=== PATIENT | female | born 2005 | race Caucasian/White ===

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

== ENCOUNTER 2024-07-24 09:34 | Emergency (ER) | payer OTHER, SELFPAY ==
[2024-07-24 09:35] VITALS: BP 120/95; PULSE 60; RESP 18; TEMP 36.4; O2SAT 100
--- OUTSIDE RECORDS SUMMARY | 2024-07-24 10:06 | XMS_ITS | Clinical Summary ---
Author Organization [facility] Address [address] [place] [address] Care Team Providers Care Home Health Rn Name Role Phone Mary Kay Mcgrath MD Primary Care P rovider Allergies No known active allergies Medications Blisovi Fe 06/08, , 1 mg-20 mcg (21)/75 mg (7) per tablet Take 1 tablet by mouth daily 06/03/2023 Active Active Problems Problem Noted Date Diagnosed Date Abdominal pain 08/12/2023 Celiac disease 08/12/2023 Helicobacter pylori infection 08/12/2023 Chronic abdominal pain 08/11/2023 Social History Tobacco Use Types Packs/Day Years Used Date Smoking Tobacco: Former Cigarettes E-cigarettes Smokeless Tobacco: Never Tobacco Cessation:Counseling Given: Not Answered AUDIT-C Answer Date Recorded Q1: How often do you have a drink containing alcohol? Never 08/19/2023 Q2: How many drinks containi ng alcohol do you have on a typical day when you are drinking? Patient does not drink Q3: How often do you have si x or more drinks on one occasion? Never 08/19/2023 Personal Safety Answer Date Recorded Have you ever been in or are you currently in a harmful physical or emotional relationship or is someone making you feel afraid or unsafe? Denies 08/19/2023 Comments No Sex and Gender Information Value Date Recorded Sex Assigned at Not on file Legal Sex Female 2:43 PM CDT Gender Identity Not on file Sexual Orientation Not on file Obstetrics History Growth Chart Information Age Height Weight Bkkpbp-inb-mjue th Percentile BMI Percentile Head Circum Head Circum Percentile Date 17 years 160 cm (5' 3 ) 56.7 kg (125 lb) 57.66%* 2023 17 years 160 cm (5' 3 ) 56.5 kg (124 lb 8 oz) 56.73%* 2023 * [facility] (Girls, 2-20 Years) Last Filed Vital Signs Vital Sign Reading Time Taken Comments Blood Pressure 109/73 08/19/2023 4:00 PM CDT Pulse 81 08/19/2023 4:00 PM CDT Temperature 37.6 C (99.7 F) 08/19/2023 1:44 PM CDT Respiratory Rate 19 08/19/2023 4:00 PM CDT Oxygen Saturation 100% 08/19/2023 4:00 PM CDT Inhaled Oxygen Concentration - - Weight 56.7 kg (125 lb) 08/19/2023 1:44 PM CDT Height 160 cm (5' 3 ) 08/19/2023 1:44 PM CDT Body Mass Index 22.14 08/19/2023 1:44 PM CDT Body Mass Index Percentile 57.66% 08/19/2023 1:4 4 PM CDT Growth Chart: [facility] (Girls, 2- 20 Years) Plan of Treatment Health Maintenance Due Date Last Done Comments Depression Screening 2004 DTaP/Tdap/Td Vaccine (1 - Tdap) 10/31/2015 Varicella Vaccines (1 of 2 - 13+ 2-dose series) 2017 HPV Vaccines (1 - 3-dose series) 10/31/2019 Meningococcal B Vaccine (1 o f 2 - Standard) 2020 Regular Well Visit/Exam 18-64 2022 Influenza Vaccine (#1) 2024 Hepatitis B Screening Completed 08/09/2023 Hepatitis C Screening Completed 08/09/2023 Meningococcal Vaccine Aged Out No karen meghna eligible based on patient's age to complete this topic Pneumococcal vaccine <65 Aged Out No longer eligible based on patient's age to complete this topic Procedures Procedure Name Priority Date/Time Associated Diagnosis Comments HEPATITIS C ANTIBODY Routine 08/09/2023 9:42 AM CDT Abnormal AST and ALT from Last 3 Months or Most Recently Relevant to Health Maintenance Results * Hepatitis C antibody Blood (08/09/2023 9:42 AM CDT) Hep C Ab Nonreactive Nonreactive Comment:Antibodies to HCV no t detected. Does NOT exclude the possibility of recent exposure to HCV. Current interpretive data was last revised on 22 Blood 08/09/2023 9:42 AM CDT 08/09/2023 11:33 AM CDT us Gideon Horne MD LAB MICROBIOLOGY - GENER AL ORDERABLES Final Result [facility] [place] [address] from Last 3 Months or Most Recently Relevant to Health Maintenance [place] [address] [place] [address] Advance Directives For more information, please contact: [phone] * Full Code (Latest Code Status on File) Date Activated Date Inactivated Comments 08/19/2023 1:32 PM 08/19/2023 8:17 PM Care Teams Home Health Rn Relationship Specialty Start Date End Date Mary Kay Mcgrath MD [address] [facility] [place] [address] PCP - General Internal Medicine 08/09/23
--- OUTSIDE RECORDS SUMMARY | 2024-07-24 10:06 | XMS_ITS | Referral Summary ---
Author Organization [facility] Address [address] [place] [address] Care Team Providers Care Coffee Grower Name Role Phone Mary Kay Mcgrath MD [...] on file Sexual Orientation Not on file Last Filed Vital Signs Vital Sign Reading [...] 08/19/2023 1:4 4 PM CDT Growth Chart: [facility] (Girls, 2- 20 Years) Plan of Treatment Not on file Procedures Procedure Name Priority Date/Time Associated Diagnosis [...] MICROBIOLOGY - GENER AL ORDERABLES Final Result [facility] Department [place] [address] from Last 3 Months or Most Recently Relevant to Health Maintenance Insurance [place] [facility] Advance Directives For more information, please contact: [phone] * Full Code (Latest Code Status on File) Date Activated Date Inactivated Comments 08/19/2023 1:32 PM 08/19/2023 8:17 PM Care Teams Coffee Grower Relationship Specialty Start Date End Date Mary Kay Mcgrath MD [address] [facility] [address] [place] [address] PCP - General Internal Medicine 08/09/23
--- OUTSIDE RECORDS SUMMARY | 2024-07-24 10:06 | XMS_ITS | Encounter Summary ---
Author Organization [facility] Address [address] [place] [address] Phone Care Team Providers Care Canteen Manager Name Role Phone Mary Kay Mcgrath MD Primary Care P rovider Encounter Details Date Type Department Care Team (Late st Contact Info) Description 02/27/2024 Orders Only [facility] Scanning, Provider Social History Tobacco Use Types Packs/Day Years Used Date Smoking Tobacco: Former Cigarettes E-cigarettes Smokeless Tobacco: Never AUDIT-C Answer Date Recorded Q1: How often [...] on file Sexual Orientation Not on file documented as of this encounter Plan of Treatment Not on file documented as of this encounter Procedures Procedure Name Priority Date/Time Associated Diagnosis Comments SCAN - LABS 02/27/2024 documented in this encounter Results * SCAN - LABS (02/27/2024) us Provider Scanning Final Result documented in this encounter Visit Diagnoses Not on filedocumented in this encounter Care Teams Canteen Manager Relationship Specialty Start Date End Date Mary Kay Mcgrath MD [facility] [address] [address] PCP - General Internal Medicine 08/09/23 documented as of this encounter
--- OUTSIDE RECORDS SUMMARY | 2024-07-24 12:27 | XMS_ITS | Encounter Summary ---
Author Organization [facility] Address [address] [place] [address] Phone Care Team Providers Care Payroll Processor Name Role Phone Mary Kay Mcgrath MD [...] on filedocumented in this encounter Care Teams Payroll Processor Relationship Specialty Start Date End Date Mary Kay Mcgrath MD [facility] [facility] [place] [address] PCP - General Internal Medicine 08/09/23 documented as of this encounter
--- OUTSIDE RECORDS SUMMARY | 2024-07-24 12:27 | XMS_ITS | Clinical Summary ---
Author Organization [facility] Address [address] [place] [address] Care Team Providers Care Art Objects Salesperson Name Role Phone Mary Kay Mcgrath MD [...] History Growth Chart Information Age Height Weight Ffrbzq-rmu-cqit th Percentile BMI Percentile Head Circum Head Circum Percentile Date 17 years 160 cm (5' 3 ) 56.7 kg (125 lb) 57.66%* 2023 17 years 160 cm (5' 3 ) 56.5 kg (124 lb 8 oz) 56.73%* 2023 * [facility]NOTE 3[facility] (Girls, 2-20 Years) Last Filed Vital Signs [...] 08/19/2023 1:4 4 PM CDT Growth Chart: [facility]NOTE 3[facility] (Girls, 2- 20 Years) Plan of Treatment [...] - GENER AL ORDERABLES Final Result [facility] One [facility] Department [place] [address] from Last 3 Months or Most Recently Relevant to Health Maintenance [place] [address] [place] [address] Advance Directives For more information, please contact: [phone] * Full Code (Latest Code Status on File) Date Activated Date Inactivated Comments 08/19/2023 1:32 PM 08/19/2023 8:17 PM Care Teams Art Objects Salesperson Relationship Specialty Start Date End Date Mary Kay Mcgrath MD [address] [facility] [place] [address] PCP - General Internal Medicine 08/09/23
--- OUTSIDE RECORDS SUMMARY | 2024-07-24 12:27 | XMS_ITS | Referral Summary ---
Author Organization [facility] Address [address] [place] [address] Care Team Providers Care Embedded Software Developer Name Role Phone Mary Kay Mcgrath MD [...] 08/19/2023 1:4 4 PM CDT Growth Chart: [facility] (Girls, 2- 20 Years) Plan of Treatment [...] MICROBIOLOGY - GENER AL ORDERABLES Final Result [facility] One [facility] Department [place] [address] from Last 3 Months or Most Recently Relevant to Health Maintenance Insurance [place] [facility] Advance Directives For more information, please contact: [phone] * Full Code (Latest Code Status on File) Date Activated Date Inactivated Comments 08/19/2023 1:32 PM 08/19/2023 8:17 PM Care Teams Embedded Software Developer Relationship Specialty Start Date End Date Mary Kay Mcgrath MD [address] [facility] [place] [address] PCP - General Internal Medicine 08/09/23
--- NOTE | 2024-07-24 14:11 | ED_ITS ---
HPI - Neck Pain/Injury General Chief Complaint: Neck Pain/Injury Stated Complaint: neck pain Time Seen by Provider: 07/24/24 11:16 History of Present Illness HPI Narrative: Patient is a 18-year-old female who presents to the ER with complaints of neck pain. She reports her neck pain started approximately 1 week ago. Patient denies having hit her head or fevers. She endorses full range of motion, but endorses worsening pain with movement. Patient denies any headaches or one-sided weakness/numbness/tingling. She denies any medical history related to this ER visit. Related Data Home Medications ?Medication ?Instructions ?Recorded ?Confirmed ?Last Taken ?Type sulfamethoxazole 800 1 tablet PO 04/28/24 04/28/24 Unknown History mg-trimethoprim 160 mg tablet Allergies Allergy/AdvReac Type Severity Reaction Status Date / Time No Known Allergies Allergy Mild Verified 07/24/24 12:10 Review of Systems Review of Systems: All systems reviewed & are unremarkable except as noted in HPI and below PMFSH Family History Family History Grandparent Heart disease Social History Social History Smoking status: Never smoker Alcohol intake: never Substance use: never Lack of Transportation: No Lack of Food: Never True Current Housing: I Have Housing Concerned About Future Housing: No Difficulty Paying Gas/Electric Bills: No Difficulty Paying for Meds: No Currently Unemployed: No Education: High School Diploma/GED Difficulty w/ Childcare or Family Care: No Living arrangements: with family Occupation/Education: student Gender identity (if verbalized by the patient): Female Sexual Orientation (if Verbalized by the Patient): Straight or Heterosexual Exam Narrative: GENERAL: Well appearing, well-nourished, non-toxic, in no acute distress. HEAD: Normocephalic, atraumatic. PERRLA intact NECK: Supple. No adenopathy, no masses. RESPIRATORY: Airway patent, respirations nonlabored. Clear to auscultation bilaterally, no rales, rhonchi, wheezing. CARDIOVASCULAR: Regular rate and rhythm without murmurs, rubs, or gallops. Peripheral pulses 2+ and equal bilaterally. ABDOMINAL: Soft, nontender, nondistended, no hepatosplenomegaly. Normoactive BS. MUSCULOSKELETAL: Moves all extremities. Strength/ROM intact without gross deformities. SKIN: Warm, dry, normal color. No rashes. NEURO: A&O X3. Speech clear. Cranial nerves II-XII grossly intact. Steady gait. No ataxic movements. PSYCHIATRIC: Appropriate mood and affect. Normal interaction. Course Vital Signs Vital signs: Vital Signs Temperature 36.4 C 07/24/24 09:35 Pulse Rate 60 07/24/24 09:35 Respiratory Rate 18 07/24/24 09:35 Blood Pressure 120/95 H 07/24/24 09:35 Pulse Oximetry 100 07/24/24 09:35 Oxygen Delivery Room Air 07/24/24 09:35 Temperature 36.4 C 07/24/24 09:35 Pulse Rate 60 07/24/24 09:35 Respiratory Rate 18 07/24/24 09:35 Blood Pressure 120/95 H 07/24/24 09:35 Pulse Oximetry 100 07/24/24 09:35 Oxygen Delivery Room Air 07/24/24 09:35 MDM - Neck Pain/Injury MDM Narrative Medical decision making narrative: Patient is a 18-year-old female who presents to the ER with complaints of neck pain. She reports her neck pain started approximately 1 week ago. Patient denies having hit her head or fevers. She endorses full range of motion, but endorses worsening pain with movement. Patient denies any headaches, mastoid tenderness, cough/congestion/sore throat or one-sided weakness/numbness/tingling. She denies any medical history related to this ER visit. Labs Ordered: None necessary Imaging Ordered: None necessary Medications Ordered: Toradol 60 mg IM, prednisone 40 mg p.o. Diagnosis: neck strain Patient Education/Shared MDM: Results shared with patient. She endorses improvement following medication administration. Patient strongly advised to maintain hydration status upon discharge and follow-up with her PCP. She will be discharged home with prescription for muscle relaxants and anti- inflammatories. Strict return precautions provided. Patient verbalized understanding is in agreement with plan. Vital signs stable at time of discharge. All questions answered. Differential Diagnosis Differential diagnosis: Likely cervical radiculopathy, torticollis, cervical spondylosis and strain of neck muscle Discharge Plan Discharge Clinical Impression: Neck muscle strain, Acute neck pain Patient Disposition: Home, Self-Care Condition: Stable Instructions: Antibiotic Form, Cervical Strain (ED), Neck Pain (ED) Additional Instructions: Please return to the ER with any worsening symptoms. Follow-up with primary care provider in the next 2-3 days. Take all medications as prescribed. You can take Ibuprofen as needed for additional pain relief. Patient Language: Luxembourger Prescriptions: New methylprednisolone [Medrol (Robert)] 4 mg tablets,dose pack See Rx Instructions .ROUTE .COMPLEX Qty: 21 0RF Rx Instructions: for 6 days cyclobenzaprine 5 mg tablet 5 mg PO TID PRN (Reason: muscle spasm) Qty: 12 0RF No Action sulfamethoxazole-trimethoprim 800-160 mg tablet 1 tablet PO Follow-up/Referrals: UNKNOWN,DOCTOR [Primary Care Provider] - Stand Alone Forms: Work/School Release IP Time of Disposition: 15:25
[2024-07-24] MEDS: KETOROLAC (*BKC) 60 MG/2 ML VIAL IM (15:00)
[2024-07-24] MEDS: predniSONE 20 MG TABLET 40 MG PO (15:00)
[2024-07-24 15:29] VITALS: BP 120/83; PULSE 61; RESP 16; O2SAT 100
== END 2024-07-24 15:30 | disposition home or self-care (01) ==
PROVIDERS: Emergency Provider Registered Nurse
DX: S16.1XXA Strain of muscle, fascia and tendon at neck level, initial encounter (principal); X58.XXXA Exposure to other specified factors, initial encounter
CPT/HCPCS: 96372; 99283; J1885; J7512

== ENCOUNTER 2025-03-04 05:59 | Emergency (ER) | payer OTHER, SELFPAY ==
--- NOTE | ~2025-03-04 | CT_ITS ---
EXAMINATION: CT abdomen pelvis w con DATE: 03/04/2025 08:03 INDICATION: Right upper quadrant and epigastric abdominal pain. TECHNIQUE: Computed tomography (CT) of the abdomen and pelvis was performed with 100 mL Omnipaque-350 intravenous contrast. Automated exposure control and iterative reconstruction technique were employed. The dose-length product was 242.21 mGy-cm. COMPARISON: None FINDINGS: Lung bases are clear. Heart size is normal. No pericardial or pleural effusion. Liver, gallbladder, spleen, pancreas, bilateral adrenal glands and kidneys are normal. Bowels including the appendix are normal. Bladder, uterus and bilateral adnexa are unremarkable. Small amount of likely physiologic free fluid in the cul-de-sac. No pathologically enlarged abdominal or pelvic lymphadenopathy. Moderate disc height loss at T10-T11 and chronic appearing mild anterior wedging at T11. IMPRESSION: 1. No acute intra-abdominal/pelvic process. Reviewed, dictated and finalized at location A.
[2025-03-04 06:00] VITALS: BP 133/72; PULSE 83; RESP 16; TEMP 37.2; O2SAT 100
[2025-03-04 06:40] LABS: Hematocrit 37.2 % (37.0-47.0); Hemoglobin 12.3 g/dL (12.0-15.0); Immature Granulocyte Percent A 0.4 % (0-0.5); Lymphocytes Absolute Auto 0.57 K/mm3 (0.9-3.2); Mean Corpuscular HGB Conc 33.1 g/dl (32-36); Mean Corpuscular Hemoglobin 30.3 pg (26-34); Mean Corpuscular Volume 91.6 fl (80-100); Nucleated Red Blood Cells Absolute Auto 0.000 K/mm3 (0.0-0.012); Nucleated Red Blood Cells Perc 0.0 % (0.0-0.2); Platelet Count Result 247 k/mm3 (150-375); Red Blood Count 4.06 M/mm3 (4.2-5.4); White Blood Count 4.7 K/mm3 (4.5-10.0)
--- NOTE | 2025-03-04 06:44 | ED_ITS ---
HPI - GI Bleed General Chief complaint: GI Bleed Stated complaint: covid +, throwing up blood Time Seen by Provider: 03/04/25 06:16 Source: patient Mode of arrival: ambulatory Limitations: no limitations History of Present Illness HPI Narrative: This is a 19-year-old female, who denies significant past medical history, presents emergency department complaining blood in vomit. The patient states she tested positive for COVID yesterday. This morning she began vomiting. She noted what appeared to be dark, stringy, coffee-ground appearing debris and vomit. She states she has not eaten since yesterday morning. She has complains of sharp epigastric and right upper quadrant abdominal pain rated 5/10. She has no other complaints at this time. Related Data Allergies Allergy/AdvReac Type Severity Reaction Status Date / Time No Known Allergies Allergy Mild Verified 10/19/24 08:27 Review of Systems 2 Review of Systems: Last menstrual period 3 weeks ago All systems reviewed & are unremarkable except as noted in HPI and below PMFSH Past Medical History Medical History Exposure to sexually transmitted disease (STD) Family History Family History Grandparent Heart disease Social History Social History Smoking status: Never smoker Alcohol intake: never Substance use: never Lack of Transportation: No Lack of Food: Never True Current Housing: I Have Housing Concerned About Future Housing: No Difficulty Paying Gas/Electric Bills: No Difficulty Paying for Meds: No Currently Unemployed: No Education: High School Diploma/GED Difficulty w/ Childcare or Family Care: No Living arrangements: with family Occupation/Education: student Gender identity (if verbalized by the patient): Female Sexual Orientation (if Verbalized by the Patient): Straight or Heterosexual Exam 2 Narrative: GENERAL: Well-developed, well-nourished, and in no acute distress. HEAD: Normocephalic, atraumatic. EYES: PERRLA and EOMI. ENT: Nares clear, no rhinorrhea or epistaxis. Mucous membranes moist. Oropharynx without tonsillar hypertrophy exudate or other lesions. Bilateral TMs pearly burns nonbulging NECK: Supple. No adenopathy or masses. No carotid bruits or JVD CHEST: Clear to auscultation. No respiratory distress. No wheezes rales or rhonchi HEART: Regular rate and rhythm. No murmur heard. Normal peripheral pulses. ABDOMEN: Soft, nontender, nondistended, normal active bowel sounds. EXTREMITIES: Normal range of motion. No edema. SKIN: Warm, dry, no rash. NEURO: Alert and oriented x3. No focal deficit. Moving all 4 limbs spontaneously PSYCH: Normal mood and affect. Course Course Emergency Course: 10:15 - CBC demonstrates a normal white blood cell count though an elevated neutrophil low lymphocyte percentage. Chemistries unremarkable, including a normal BUN. I have low suspicion for GI bleed. test negative. CT abdomen pelvis unremarkable. On re-evaluation, the patient states her nausea is somewhat improved though still present. She has not had recurrent episodes of vomiting here or other signs of bleeding. Will discharge with a PPI and recommendation for primary care follow-up. I discussed the findings and recommendations with patient. Discussed return and emergency precautions including signs/symptoms of acute abdomen and intractable vomiting. The patient voiced understanding and agreement with the plan. All questions answered to her satisfaction. Vital Signs Vital signs: Vital Signs Temperature 99.0 F 03/04/25 06:00 Pulse Rate 83 03/04/25 06:00 Respiratory Rate 16 03/04/25 06:00 Blood Pressure 133/72 03/04/25 06:00 Pulse Oximetry 100 03/04/25 06:00 Oxygen Delivery Room Air 03/04/25 06:00 Temperature 99.0 F 03/04/25 06:00 Pulse Rate 88 03/04/25 10:35 Respiratory Rate 14 03/04/25 10:35 Blood Pressure 114/83 03/04/25 10:35 Pulse Oximetry 100 03/04/25 10:35 Oxygen Delivery Room Air 03/04/25 06:00 MDM - GI Bleed MDM Narrative Medical decision making narrative: Plan: Imaging, test, pain control, labs, reassess Differential Diagnosis Differential diagnosis: Likely Lay-Jalloh syndrome and other (Gastritis, peptic ulcer disease, COVID-19, metabolic abnormality, , other) Lab Data 03/04/25 06:32 03/04/25 06:32 Labs: Lab Results 03/04/25 03/04/25 Range/Units 06:32 06:48 WBC 4.7 (4.5-10.0) K/mm3 RBC 4.06 L (4.2-5.4) M/mm3 Hgb 12.3 (12.0-15.0) g/dL Hct 37.2 (37.0-47.0) % MCV 91.6 (80-100) fl MCH 30.3 (26-34) pg MCHC 33.1 (32-36) g/dl RDW 12.9 (11.5-14.5) % Plt Count 247 (150-375) k/mm3 MPV 9.7 (7.4-10.4) fl Immature Gran % (Auto) 0.4 (0-0.5) % Neut % (Auto) 76.2 H (45.5-73.1) % Lymph % (Auto) 12.0 L (18.3-44.2) % Hall % (Auto) 10.8 H (2.6-8.5) % Eos % (Auto) 0.4 (0-4.4) % Baso % (Auto) 0.2 (0.2-1.2) % Lymph # (Auto) 0.57 L (0.9-3.2) K/mm3 Hall # (Auto) 0.5 (0.1-0.6) K/mm3 Eos # (Auto) 0.0 (0-0.3) K/mm3 Baso # (Auto) 0.0 (0.0-0.1) K/mm3 Abs Immat Gran (auto) 0.02 (0.00-0.031) K/mm3 Absolute Neuts (auto) 3.6 (1.3-6.7) K/mm3 Absolute Nucleated RBC 0.000 (0.0-0.012) K/mm3 Nucleated RBC % 0.0 (0.0-0.2) % PT 13.5 (11.1-14.7) Seconds INR 1.0 APTT 28.5 (22.3-36.8) Seconds Sodium 136 L (137-145) mmol/L Potassium 3.9 (3.4-5.0) mmol/L Chloride 104 (98-107) mmol/L Carbon Dioxide 23 (22-30) mmol/L Anion Gap 9 (4-12) mmol/L BUN 7 (7-17) mg/dL Creatinine 0.68 L (0.7-1.0) mg/dL Estim Creat Clear Calc 98 ml/min Estimated GFR > 60 (59 - ) Glucose 95 (65-110) mg/dL Lactic Acid 0.6 L (0.7-2.0) mmol/L Calcium 8.9 (8.4-10.2) mg/dL Total Bilirubin 0.3 (0.2-1.3) mg/dL AST 27 (14-36) U/L ALT 14 (6-35) U/L Alkaline Phosphatase 66 (38-126) U/L Total Protein 7.4 (6.3-8.2) g/dL Albumin 4.1 (3.5-5.1) g/dL POC Urine HCG, Qual Negative (Negative) Blood Type A Negative Antibody Screen Negative Discharge Plan Discharge Clinical Impression: Lay-Jalloh tear, COVID-19 Nausea and vomiting Qualifiers: Vomiting type: unspecified Qualified Code(s): R11.2 - Nausea with vomiting, unspecified Patient Disposition: Home Condition: Stable Instructions: Antibiotic Form, Gastritis (ED) Additional Instructions: You were seen in the emergency department. Your labs and CT scan of the belly were reassuring. I recommend an acid blocking medication and follow-up with a primary care doctor and GI doctor. If you develop severe abdominal pain, abdominal pain with fevers, persistent vomiting, or if you have other emergent concerns for life, limb, or eyesight, return to the emergency department. Patient Language: Kinyarwanda Prescriptions: New omeprazole 40 mg capsule,delayed release(DR/EC) 40 mg PO DAILY Qty: 30 0RF ondansetron 4 mg tablet,disintegrating 4 mg PO Q8H PRN (Reason: nausea and vomiting) Qty: 12 0RF No Action norgestimate-ethinyl estradiol [Tri-Sprintec (28)] 0.18/0.215/0.25 mg-35 mcg (28) tablet 1 tablet PO DAILY Qty: 84 3RF Follow-up/Referrals: Kely,Ivy Quinones MD [Primary Care Provider, Unknown] Uli Crouch MD [Physician, Gastroenterology] - 2 Weeks Time of Disposition: 10:34
[2025-03-04] MEDS: PANTOPRAZOLE SODIUM IV 40 MG VIAL 80 MG IV PUSH (06:45)
[2025-03-04] MEDS: ONDANSETRON INJ 4 MG/2 ML VIAL IV PUSH (06:45)
[2025-03-04] MEDS: SODIUM CHLORIDE 0.9% IV 1,000 ML 999 ML IV CONT (06:45)
[2025-03-04 06:50] LABS: BEDSIDEPREGUCG Negative (Negative)
[2025-03-04 06:52] LABS: INR 1.0; Partial Thromboplastin Time 28.5 Seconds (22.3-36.8); Prothrombin Time 13.5 Seconds (11.1-14.7)
[2025-03-04 07:00] LABS: Alanine Aminotransferase 14 U/L (6-35); Albumin Level 4.1 g/dL (3.5-5.1); Alkaline Phosphatase 66 U/L (38-126); Anion Gap 9 mmol/L (4-12); Aspartate Amino Transferase 27 U/L (14-36); Bilirubin,Total 0.3 mg/dL (0.2-1.3); Blood Urea Nitrogen 7 mg/dL (7-17); Calcium 8.9 mg/dL (8.4-10.2); Carbon Dioxide 23 mmol/L (22-30); Chloride 104 mmol/L (98-107); Estimated CRCL calculation 98 ml/min; Estimated Glomerular Filt Rate > 60; Glucose 95 mg/dL (65-110); Potassium 3.9 mmol/L (3.4-5.0); Sodium 136 mmol/L (137-145); Total Protein 7.4 g/dL (6.3-8.2)
[2025-03-04] MEDS: PROCHLORPERAZINE EDISYLATE 10 MG/2 ML VIAL IV PUSH (10:26)
[2025-03-04 10:35] VITALS: BP 114/83; PULSE 88; RESP 14; O2SAT 100
== END 2025-03-04 11:02 | disposition home or self-care (01) ==
PROVIDERS: Emergency Medicine; Emergency Provider Preventive Medicine Aerospace Medicine; PCP Emergency Medicine
DX: U07.1 COVID-19 (principal); K22.6 Gastro-esophageal laceration-hemorrhage syndrome
CPT/HCPCS: 36415; 74177; 80053; 81025; 83605; 85025; 85610; 85730; 86850; 86900; 86901; 96361; 96374; 96375; 99284; J0780; J2405; J2470; J7030; Q9967